=== PATIENT | female | born 1975 | race Two or more races ===

== ENCOUNTER 2018-04-20 08:16 | Day surgery (SDC) | payer OTHER ==
[2018-04-20] VITALS (10 sets, daily range): BP systolic 107–121; BP diastolic 60–76
[~2018-04-20] VITALS: Ht 162.6 cm; Wt 72.6 kg
[~2018-04-20 08:16] MED LIST: IBUPROFEN600 MG ORAL
--- NOTE | 2018-04-20 08:30 | Anethesia Preoperative Eval ---
Anesthesia Pre-op PMH/ROS General Date of Evaluation: Apr 20, 2018 Time of Evaluation: 08:29 ASA Score: ASA 2 Mallampati Score Class I : Soft palate, uvula, fauces, pillars visible Class II: Soft palate, uvula, fauces visible Class III: Soft palate, base of uvula visible Class IV: Only hard plate visible Mallampati Classification: Class II Allergies: Coded Allergies: MORPHINE (Verified Allergy, Intermediate, swelling mouth and eyelids, 04/19) PENICILLINS (Verified Allergy, Intermediate, rash; blisters; itching, 04/19) ACETAMINOPHEN (Verified Adverse Reaction, Intermediate, vomiting, 04/19/18) HYDROCODONE (Verified Adverse Reaction, Intermediate, vomiting, 04/19/18) Uncoded Allergies: plastic tape (Adverse Reaction, Intermediate, rash, 04/19/18) Anesthesia Pre-op Phys. Exam Airway Exam Mallampati Score: Class II Bautista Mota MD Apr 20, 2018 08:30
[2018-04-20] MEDS ORDERED: LR 1000ml 1,000 ML IVLG SCH (10:35)
--- NOTE | 2018-04-20 10:35 | Immediate Post-Op Evaluation ---
Immediate Post-Op Evalulation Immediate Post-Op Evalulation Procedure: EGD Date of Evaluation: Apr 20, 2018 Time of Evaluation: 12:06 IV Fluids: 500 Blood Products: 0 Estimated Blood Loss: 0 Urinary Output: 0 Blood Pressure Systolic: 116 Blood Pressure Diastolic: 68 Pulse Rate: 55 Respiratory Rate: 16 O2 Sat by Pulse Oximetry: 100 Temperature (Fahrenheit): 97.1 Pain Score (1-10): 0 Nausea: No Vomiting: No Complications 0 Patient Status: awake, reacts, patent, none Hydration Status: adequate Drug: N/A MARIO MCGEE M.D. Apr 20, 2018 10:35
--- NOTE | 2018-04-20 10:36 | 48 Hour Post Anesthesia Eval ---
Post Anesthesia Evaluation Procedure: EGD Date of Evaluation: Apr 20, 2018 Airway: patent Nausea: No Vomiting: No Pain Intensity: 0 Hydration Status: adequate Cardiopulmonary Status: at baseline Mental Status/LOC: patient returned to baseline Post-Anesthesia Complications: 0 Follow-up care needed: ready to discharge MARIO MCGEE M.D. Apr 20, 2018 10:36
[2018-04-20] MEDS ORDERED: Labetalol 5mg/ml 20ml vial IV PRN (10:45)
[2018-04-20] MEDS ORDERED: DiphenhydrAMINE 50mg/ml Inj IVP PRN (10:45)
[2018-04-20] MEDS ORDERED: IRON325 M1 PO (11:01)
--- NOTE | 2018-04-20 11:17 | Short Stay Surgery H&P ---
History of Present Illness History of Present Illness Chief Complaint Abdominal pains/GERDs. HPI Luciana Desai is a 43 year old female who was admitted on for Acid Reflux/ abdominal pains. Patient History Allergies: Coded Allergies: HYDROMORPHONE (Verified Allergy, Severe, 04/20/18) "PT WAS GONE AND WAS BROUGHT BACK TO LIFE" MORPHINE (Verified Allergy, Intermediate, swelling mouth and eyelids, 04/19) PENICILLINS (Verified Allergy, Intermediate, rash; blisters; itching, 04/19) ACETAMINOPHEN (Verified Adverse Reaction, Intermediate, vomiting, 04/19/18) HYDROCODONE (Verified Adverse Reaction, Intermediate, vomiting, 04/19/18) Uncoded Allergies: plastic tape (Adverse Reaction, Intermediate, rash, 04/19/18) Medication History Scheduled Ferrous Sulfate (Iron), 325 MG PO DA, (Reported) Scheduled PRN Ibuprofen* (Motrin*), 800 MG ORAL FOUR TIMES A DAY PRN for For Pain, (Reported) Review of Systems Cardiovascular: Reports: no symptoms Respiratory: Reports: no symptoms Skeletal: Reports: trauma Gastrointestinal: Reports: gastro esophageal reflux disease Genitourinary: Reports: no symptoms Neurologic: Reports: no symptoms Endocrine: Reports: no symptoms Hematologic: Reports: no symptoms Physical Exam Vital Signs Last Vital Signs Date Time Temp Pulse Resp B/P (MAP) Pulse Ox O2 Delivery O2 Flow Rate FiO2 04/20/18 11:02 97.6 20 114/76 99 Room Air 97.6 Labs Laboratory Tests Test 04/20/18 10:25 Urine HCG, Qualitative Negative (NEGATIVE) Skin: normal HENT: normal Heart: normal Lungs: normal Abdomen: abnormal Extremities: normal Genitourinary: normal Plan Attestation Are the patient's medical conditions optimized for surgery? Yvette Banerjee MD Apr 20, 2018 11:17
--- NOTE | 2018-04-20 11:19 | Short Stay Surgery H&P ---
History of Present Illness History of Present Illness Chief Complaint Abdominal pains/GERDS. HPI Luciana Desai is a 43 year old female who was admitted on for acid Reflux/ abdominal pains Patient History Allergies: Coded Allergies: HYDROMORPHONE (Verified Allergy, Severe, 04/20/18) "PT WAS GONE AND WAS BROUGHT BACK TO LIFE" MORPHINE (Verified Allergy, Intermediate, swelling mouth and eyelids, 04/19) PENICILLINS (Verified Allergy, Intermediate, rash; blisters; itching, 04/19) ACETAMINOPHEN (Verified Adverse Reaction, Intermediate, vomiting, 04/19/18) HYDROCODONE (Verified Adverse Reaction, Intermediate, vomiting, 04/19/18) Uncoded Allergies: plastic tape (Adverse Reaction, Intermediate, rash, 04/19/18) Past Surgeries: (1) delivery delivered (2) History of appendectomy (3) History of cholecystectomy Medication History Scheduled Ferrous Sulfate (Iron), 325 MG PO DA, (Reported) Scheduled PRN Ibuprofen* (Motrin*), 800 MG ORAL FOUR TIMES A DAY PRN for For Pain, (Reported) Review of Systems Cardiovascular: Reports: no symptoms Respiratory: Reports: no symptoms Skeletal: Reports: trauma Gastrointestinal: Reports: gastro esophageal reflux disease Genitourinary: Reports: no symptoms Neurologic: Reports: no symptoms Endocrine: Reports: no symptoms Physical Exam Vital Signs Last Vital Signs Date Time Temp Pulse Resp B/P (MAP) Pulse Ox O2 Delivery O2 Flow Rate FiO2 04/20/18 11:02 97.6 20 114/76 99 Room Air 97.6 Labs Laboratory Tests Test 04/20/18 10:25 Urine HCG, Qualitative Negative (NEGATIVE) Skin: normal HENT: normal Heart: normal Lungs: normal Abdomen: abnormal Extremities: normal Genitourinary: normal Plan Plan of Care Upper GI endoscopy and biopsy Preop Interventions None. Summary of Findings see the reports Attestation Are the patient's medical conditions optimized for surgery? Attestation Response: yes Yvette Banerjee MD Apr 20, 2018 11:19
--- NOTE | 2018-04-20 11:21 | Pre-Procedure Note/Attestation ---
Pre-Procedure Note/Attestation Complete Prior to Procedure Planned Procedure: left Procedure Narrative: Examination of the upper GI tract Indications for Procedure Pre-Operative Diagnosis: R/O Peptic Ulcer/gastritis. Attestation I attest that I discussed the nature of the procedure; its benefits; risks and complications; and alternatives (and the risks and benefits of such alternatives ), prior to the procedure, with the patient (or the patient's legal medical office representative). I attest that, if there was a reasonable possibility of needing a blood transfusion, the patient (or the patient's legal medical office representative) was given the [facility] standardized written summary, pursuant to the [place] Blood Safety Act ([place] Health and Safety Code # 1645, as amended). I attest that I re-evaluated the patient just prior to the surgery and that there has been no change in the patient's H&P, except as documented below: Yvette Banerjee MD Apr 20, 2018 11:21
[2018-04-20] MEDS ORDERED: Lidocaine 1% MPF 10mg/ml 5ml ONE (11:30)
[2018-04-20] MEDS ORDERED: Propofol 200mg/20ml IV ONE (11:30)
--- NOTE | 2018-04-20 11:53 | Endoscopy Procedure Note ---
Endoscopy Procedure Note General Indication for Procedure: Abdominal pains/GERds Procedures Performed: EGD - Normal Upper Gi endoscopy with incidental finding a 4mm submucosal lesions possible c/w liomyoma V\S ectopic pancreatic duct opening biopsied, looked benign. Specimen: yes Pt Tolerated Procedure Well: Yes Estimated Blood Loss: none Anesthesia Anesthesiologist: Dr. James Anesthesia: moderate sedation Medications Medication Given: see anesthesia record Inserted Devices Implant(s) used?: No Quality Quality of Bowel Preparation: Excellent Was there any complications?: No GI Core Measures 50 yrs or older w/o bx or poly: Not Applicable 10yrs. F/U not recommended: Not Applicable If not recommended, why?: Med reason:<3 yrs.: System Reason:<3 yrs.: Yvette Banerjee MD Apr 20, 2018 11:53
--- NOTE | 2018-04-20 11:54 | Discharge Instructions ---
Discharge Instructions Discharge Instructions Follow up with: See the docotor in office after two weeks. For Congestive Heart Failure Reminder Report to your physician any weight gain of 5 pounds or more in one week. Yvette Banerjee MD Apr 20, 2018 11:54
--- NOTE | 2018-04-20 20:00 | Pre-op HX & Phy Repo 2 SIG ---
DATE OF ADMISSION: 04/20/2018 HISTORY OF PRESENT ILLNESS: The applicant is a 43-year-old female, who is being seen prior to undergoing the procedure of upper GI endoscopy, for which she has been scheduled to receive evaluation of gastrointestinal symptoms that she has been suffering subsequent to her work injury and life aftermath. The applicant basically reports symptoms of gastroesophageal reflux, which are consistent with GERD that she never had before this injury at work, as she was started on multiple medications including Vicodin, Motrin, and ibuprofen that were prescribed to her for controlling her bodily pain that she had injured at work site. The patient at this time denied any difficulty swallowing and there has been no history of nausea, vomiting, or GI bleeding, however. The applicant reports that these symptoms, which have been recurring on a daily basis, particularly after consumption of food. The applicant was injured at job site over the left wrist in the shoulder and lower back area with the arm. 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 Subsequently, she was seen by multiple physicians including receiving medications of nonsteroidal agents and narcotics. PAST MEDICAL HISTORY: Basically nonsignificant. The applicant denies having high blood pressure, high cholesterol, etc. PAST SURGICAL HISTORY: , appendectomy, and gallbladder resection. ALLERGIES: To penicillin and Dilaudid. HABITS: The applicant denies drinking alcohol or smoking cigarettes. REVIEW OF SYSTEMS: Basically history of present illness. PHYSICAL EXAMINATION: GENERAL: Reveals alert and oriented female, does not seem to be in any acute distress. She looks overweight and obese. VITAL SIGNS: All stable. HEENT: Normocephalic. Pupils equal in size and reactive to light and accommodation. No visible jaundice. Buccal cavity, tongue midline, well hydrated. No ulcers. NECK: Supple. No JVD, thyromegaly, or adenopathy noted at this time. There is no palpable mass, as was felt in my first examination. At this time, I do not see any masses. CHEST: Clear to auscultation and percussion. HEART: S1 and S2 normal. Regular rhythm. No gallops or murmur. ABDOMEN: Soft, but obese. There are areas of tenderness over the upper part of the abdomen, but there was no hepatosplenomegaly. No palpable mass. EXTREMITIES: Unremarkable. PRELIMINARY IMPRESSION: 1. Abdominal pain, epigastric pain of uncertain etiology, rule out gastroesophageal acid reflux, gastroesophageal reflux disease aggravated by side effects of nonsteroidal anti-inflammatory drugs and narcotics used for the treatment of bodily injury, rule out duodenal ulcer, gastric ulcers, esophagitis, etc. 2. Anxiety and depression. RECOMMENDATION: The applicant seems to be stable at this time to undergo the procedure of upper GI endoscopy, for which she has been scheduled. She understands the risks and benefits and will sign the consent. Said Santi Banerjee DR: COLBY JOB#: [id number] CC:
--- NOTE | 2018-04-20 21:29 | Procedure Note ---
DATE OF PROCEDURE: 04/20/2018 PROCEDURE: Esophagogastroduodenoscopy with biopsy SURGEON: Yvette Banerjee M.D. PREOPERATIVE DIAGNOSES: Abdominal pain and history of gastroesophageal reflux. POSTOPERATIVE DIAGNOSES: Completely normal upper gastrointestinal endoscopy with incidental finding of 4 mm submucosal lesion over the posterior wall, lesser curvature, possibly consistent with leiomyoma versus ectopic pancreatic duct opening biopsy. MEDICATION USED: Per Dr. James, anesthesiologist. INSTRUMENT: GIF Olympus upper GI video endoscope. DESCRIPTION OF PROCEDURE: The patient, after arriving in endoscopy unit, was told about risks and benefits of the procedure, which she accepted and signed informed consent. She was then put on the left lateral decubitus position. After adequate IV sedation, the scope was gently passed through the cricopharyngeal area, was lodged into the upper esophagus and gradually advanced towards gastroesophageal junction. The entire length of the esophagus looked normal. GE junction also looked normal without any evidence of hernia or Posey's. At this time, the scope was advanced into the stomach. Gastric cavity was distended. Gradually from the fundus and the body and the antrum, the scope was advanced and there were no mucosal abnormalities except an incidental finding of 3 to 4 mm submucosal lesion presenting as a nodule over the lesser curvature, posterior wall of the antral area. This looked quite benign without any ulceration over the surface of the lesion. There was possibility of an opening raising the possibility of underlying ectopic pancreatic duct. There was also possibility of some leiomyoma of the stomach, however, it was biopsied and the specimen was sent to the laboratory. At this point, the scope was advanced into the pylorus, first and second portions of the duodenum, and found to be completely normal. Finally, the scope was pulled back into the stomach. A retroflexion maneuver was applied. The area of the gastroesophageal junction was examined in a closer fashion, which revealed completely normal findings. Finally, the scope was pulled out and the procedure was terminated. The patient tolerated the procedure well and left the endoscopy room in a good condition. Yvette Banerjee M.D. DR: ANDREE JOB#: [id number] CC:
== END 2018-04-20 13:30 | disposition home or self-care (01) ==
LOC: SDS 08:16
DX: R10.9 Unspecified abdominal pain (principal); K21.9 Gastro-esophageal reflux disease without esophagitis; F41.9 Anxiety disorder, unspecified; F32.9 Major depressive disorder, single episode, unspecified; Z90.89 Acquired absence of other organs; Z88.0 Allergy status to penicillin; Z88.8 Allergy status to other drugs, medicaments and biological substances; Z90.49 Acquired absence of other specified parts of digestive tract; Z88.6 Allergy status to analgesic agent
CPT/HCPCS: 43239; 81025; J2704; 94003; 94150